=== PATIENT | female | born 1955 | race Caucasian/White ===

== ENCOUNTER 2022-07-03 01:22 | Day surgery (SDC) | payer MEDICARE, MEDICAID, SELFPAY ==
[2022-06-13 09:34] VITALS: BMI 22.1
[2022-07-03 09:06] VITALS: BP 157/83; PULSE 102; RESP 16; TEMP 36.4; O2SAT 100
[2022-07-03] MEDS: LACTATED RINGERS 1,000 ML 150 ML IV CONT (09:09)
--- NOTE | 2022-07-03 09:52 | P.PNAN_ITS ---
Anes - Initial Pre Proc Eval Procedure: Operation Date: 07/03/22 10:15 Proposed Procedures p Colonoscopy - Abdifatah Marrero MD Date/Time: 07/03/22 09:52 Surgeon: Abdifatah Marrero MD Pre Op Diagnosis: positive cologuard Patient Data Age: 67 Gender: F Height: 1.7 m Weight: 67 kg Last Vital Signs Temp 97.5 F L 07/03/22 09:06 Pulse 102 H 07/03/22 09:06 Resp 16 07/03/22 09:06 BP 157/83 H 07/03/22 09:06 Pulse Ox 100 07/03/22 09:06 O2 Del Method Room Air 07/03/22 09:06 Allergies Allergy/AdvReac Type Severity Reaction Status Date / Time No Known Allergies Allergy Verified 07/03/22 09:02 Home Medications Medication Instructions Recorded Confirmed Type ascorbic acid (vitamin C) 500 mg 500 mg PO DAILY 09/29/19 07/03/22 History capsule diphenhydramine HCl 25 mg capsule 25 mg PO HS 09/29/19 07/03/22 History (Benadryl) magnesium 250 mg tablet 250 mg PO DAILY 09/29/19 07/03/22 History melatonin 300 mcg tablet 300 mcg PO HS 09/29/19 07/03/22 History estradiol 0.01% (0.1 mg/gram) 0.5 g vaginal 2XW 06/13/22 07/03/22 History vaginal cream (Estrace) multivitamin [id number] 1 tablet PO DAILY 06/13/22 07/03/22 History fumarate 18 mg-vitamin K 25 mcg tablet acetaminophen 300 mg-codeine 30 mg 1 tablet PO Q8H PRN Pain 07/03/22 07/03/22 History tablet Patient hx anesthesia problems: none Family hx anesthesia problems: none Results Review: All pre-operative results and documents have been reviewed as part of the pre- operative evaluation. FORMERLY [facility], 1928–1983 Past Medical History Medical History (Updated 05/15/22 @ 13:09 by Lamar Cat MA) Anxiety Back pain H/O vaginal delivery HPV test positive Insomnia Joint pain Parotid adenoma Surgical History Surgical History H/O colposcopy with cervical biopsy History of dilation and curettage Family History Family History Mother Family history of lymphoma Social History Social History (Updated 05/15/22 @ 13:10 by Lamar Cat MA) Years smoked: 40 Smoking status: Current every day smoker Tobacco type: cigarettes Second hand tobacco smoke exposure: No Alcohol intake: current Drinks per week: 2 Substance use: never Substance use type: does not use Living arrangements: alone Anes - Eval Final PreProcedure Day of Procedure 07/03/22 09:52 Patient weight: normal Heart: regular rate and rhythm Lungs: clear to auscultation Airway: Mallampati scale class II Neurological: alert and oriented Last oral intake: >/= 8 hours ASA classification: II Emergent: no Anesthetic plan: proceed Anesthesia type and monitoring: general GIVS and standard monitoring Results Review: All pre-operative results and documents have been reviewed as part of the pre- operative evaluation. Informed Consent: The patient's anesthetic plan and its attendant risks and benefits were di scussed with the patient/family/POA. Questions were solicited and answers provided to the satisfaction of the patient/family/POA.
--- NOTE | 2022-07-03 10:25 | PM.HPGS ---
History of Present Illness History of Present Illness Consent: Risks, benefits, and alternatives have been discussed and questions answered. Patient agrees to proceed with procedure. Chief complaint: positive cologuard Narrative: Dafne Hansen is a 67 year old female Presents for colonoscopy. Patient had recent Cologuard test that was positive. Patient reports that her weight appetite bowel movements are normal. Patient denies abdominal pain. She has had no bleeding. Family history is noncontributory. Review of Systems Review of Systems: Review of systems noncontributory. [facility] Past Medical History Medical History (Updated 07/03/22 @ 10:26 by Abdifatah Marrero MD) Anxiety Back pain H/O vaginal delivery HPV test positive Insomnia Joint pain Parotid adenoma Surgical History Surgical History H/O colposcopy with cervical biopsy History of dilation and curettage Family History Family History Mother Family history of lymphoma Social History Social History (Updated 05/15/22 @ 13:10 by Lamar Cat MA) Years smoked: 40 Smoking status: Current every day smoker Tobacco type: cigarettes Second hand tobacco smoke exposure: No Alcohol intake: current Drinks per week: 2 Substance use: never Substance use type: does not use Living arrangements: alone Meds Home Medications and Allergies Home Medications Medication Instructions Recorded Confirmed Type ascorbic acid (vitamin C) 500 mg 500 mg PO DAILY 09/29/19 07/03/22 History capsule diphenhydramine HCl 25 mg capsule 25 mg PO HS 09/29/19 07/03/22 History (Benadryl) magnesium 250 mg tablet 250 mg PO DAILY 09/29/19 07/03/22 History melatonin 300 mcg tablet 300 mcg PO HS 09/29/19 07/03/22 History estradiol 0.01% (0.1 mg/gram) 0.5 g vaginal 2XW 06/13/22 07/03/22 History vaginal cream (Estrace) multivitamin [id number] 1 tablet PO DAILY 06/13/22 07/03/22 History fumarate 18 mg-vitamin K 25 mcg tablet acetaminophen 300 mg-codeine 30 mg 1 tablet PO Q8H PRN Pain 07/03/22 07/03/22 History tablet Allergies Allergy/AdvReac Type Severity Reaction Status Date / Time No Known Allergies Allergy Verified 07/03/22 09:02 Vital Signs Vital Signs - 24 hr 07/03/22 09:06 Temperature 97.5 F L Pulse Rate 102 H Respiratory Rate 16 Blood Pressure 157/83 H Pulse Oximetry 100 Oxygen Delivery Room Air Exam Narrative: Physical exam reveals patient to be alert. Vital signs stable. HEENT exam is unremarkable. Patient is anicteric. Lungs are clear to auscultation and percussion. Heart is without murmur or extra sounds. Abdomen bowel sounds are present soft nontender with no organomegaly. Digital external rectal exam is normal. Assessment and Plan Assessment and plan (1) Positive colorectal cancer screening using Cologuard test: Code(s): R19.5 - Other fecal abnormalities Status: Acute Assessment and Plan: Patient's Cologuard test was positive. Plan for colonoscopy to evaluate more thoroughly further recommendations will be given after endoscopy.
[2022-07-03 11:22] VITALS: BP 125/79; PULSE 89; RESP 23; O2SAT 100
[2022-07-03 11:32] VITALS: BP 127/79; PULSE 74; RESP 20; O2SAT 100
[2022-07-03 11:42] VITALS: BP 145/74; PULSE 78; RESP 22; O2SAT 100
== END 2022-07-03 11:55 | disposition home or self-care (01) ==
PROVIDERS: PCP Family Medicine; Visit Provider Internal Medicine Gastroenterology
PROC: 0DJD8ZZ Inspection of Lower Intestinal Tract, Via Natural or Artificial Opening Endoscopic (ICD-10-PCS; CPT 45378; principal; 2022-07-03 10:15)
DX: R19.5 Other fecal abnormalities (principal); K62.1 Rectal polyp; F41.9 Anxiety disorder, unspecified; G47.00 Insomnia, unspecified; F17.210 Nicotine dependence, cigarettes, uncomplicated
CPT/HCPCS: 45385; 88305; A9270; J2001; J2704; J7120

== ENCOUNTER 2024-01-24 15:40 | Outpatient (CLI) | payer MEDICARE, MEDICAID, SELFPAY ==
--- NOTE | ~2024-01-24 | XR_ITS ---
EXAMINATION: XR chest 2V DATE: 01/24/2024 16:26 INDICATION: Sarcoidosis TECHNIQUE: PA and lateral views of the chest were obtained. COMPARISON: None FINDINGS: The lungs are clear with no focal airspace opacities, pulmonary edema, pleural effusion or pneumothor ax. The cardiomediastinal silhouette is normal. Mild thoracic spondylosis with mild anterior wedging of a couple mid thoracic vertebral bodies. IMPRESSION: 1. No acute cardiopulmonary disease. Reviewed, dictated and finalized at location A.
== END 2024-01-24 15:41 ==
DX: D86.9 Sarcoidosis, unspecified (principal); Z87.891 Personal history of nicotine dependence
CPT/HCPCS: 71046

== ENCOUNTER 2024-01-28 11:32 | Outpatient (CLI) | payer MEDICARE, MEDICAID, SELFPAY ==
[2024-01-28 13:20] LABS: Alanine Aminotransferase 23 U/L (6-35); Albumin Level 4.9 g/dL (3.5-5.1); Alkaline Phosphatase 48 U/L (38-126); Anion Gap 11 mmol/L (4-12); Aspartate Amino Transferase 29 U/L (14-36); Bilirubin,Total 0.5 mg/dL (0.2-1.3); Blood Urea Nitrogen 15 mg/dL (7-17); CRP < 0.5 mg/dL (<1.0); Calcium 10.2 mg/dL (8.4-10.2); Carbon Dioxide 25 mmol/L (22-30); Chloride 105 mmol/L (98-107); Estimated Glomerular Filt Rate > 60; Glucose 99 mg/dL (65-110); Potassium 4.5 mmol/L (3.4-5.0); Sodium 141 mmol/L (137-145)
[2024-01-28 13:46] LABS: Erythrocyte Sedimentation Rate 53 mm/hr (0-20)
[2024-01-28 13:49] LABS: Basophils Absolute Auto 0.1 K/mm3 (0.0-0.1); Basophils Percent Auto 0.8 % (0.2-1.2); Eosinophils Absolute Auto 0.1 K/mm3 (0-0.3); Eosinophils Percent Auto 0.6 % (0-4.4); Hematocrit 35.9 % (37.0-47.0); Immature Granulocyte Absolute 0.07 K/mm3 (0.00-0.031); Immature Granulocyte Percent A 0.7 % (0-0.5); Lymphocytes Absolute Auto 2.31 K/mm3 (0.9-3.2); Lymphocytes Percent Auto 24.5 % (18.3-44.2); Mean Corpuscular HGB Conc 33.4 g/dl (32-36); Mean Corpuscular Hemoglobin 33.8 pg (26-34); Mean Corpuscular Volume 101.1 fl (80-100); Mean Platelet Volume 9.4 fl (7.4-10.4); Monocytes Absolute Auto 0.6 K/mm3 (0.1-0.6); Monocytes Percent Auto 6.4 % (2.6-8.5); Neutrophils Absolute Auto 6.3 K/mm3 (1.3-6.7); Platelet Count Result 402 k/mm3 (150-375); Red Blood Count 3.55 M/mm3 (4.2-5.4); Red Cell Distribution Width 11.4 % (11.5-14.5); White Blood Count 9.4 K/mm3 (4.5-10.0)
[2024-01-28 15:07] LABS: Rapid Plasma Reagin Non-Reactive (NonReactive)
[2024-01-29 23:59] LABS: HLA B27 NEGATIVE (NEGATIVE)
[2024-01-30 12:18] LABS: Angiotensin Converting Enzyme 31 U/L (9-67)
[2024-01-30 13:18] LABS: Toxoplasma IgG Antibody <7.20 IU/mL
[2024-01-30 13:18] LABS: Toxoplasma IgM Antibody <8.00 AU/mL
[2024-02-04 21:03] LABS: Bartonella henselae IgG NEGATIVE; Bartonella henselae IgM NEGATIVE; Bartonella quintana IgG NEGATIVE; Bartonella quintana IgM NEGATIVE
[2024-02-12 08:23] LABS: Reference Lab Test Name Lysozyme
[2024-02-12 08:24] LABS: Reference Lab Test Result 8.2
[2024-02-15 00:24] LABS: Treponema pallidum Ab FTA ABS NON-REACTIVE
== END 2024-01-28 11:33 | disposition home or self-care (01) ==
DX: Z11.3 Encounter for screening for infections with a predominantly sexual mode of transmission (principal); H44.112 Panuveitis, left eye
CPT/HCPCS: 36415; 80053; 82164; 85025; 85652; 86140; 86592; 86611; 86777; 86780; 86812

== ENCOUNTER 2025-08-03 14:58 | Outpatient (CLI) | payer MEDICARE, SELFPAY ==
--- NOTE | ~2025-08-03 | DEXA_ITS ---
Bone Density Report Name: ALXEIS DELEON Age: 70 Sex: Female Ethnicity: White Date of : 1955 Indication: postmenopausal; screening for osteoporosis; height loss; Referring Provider: WILLI MENJIVAR Study: Bone densitometry was performed. Exam Date: August 03, 2025 Accession number: [id number] Bone Density: Region BMD T-score Z-score Classification AP Spine(L2, L3, L4) 1.096 0.2 2.4 Normal Femoral Neck (Left) 0.797 -0.5 1.3 Normal Total Hip (Left) 0.953 0.1 1.6 Normal Femoral Neck (Right) 0.867 0.2 2.0 Normal Total Hip (Right) 0.958 0.1 1.7 Normal Total Hip Mean 0.956 0.1 1.7 Normal World Health Organization criteria for BMD impression classify patients as: Normal (T-score at or above -1.0), Osteopenia (T-score between -1.0 and -2.5), or Osteoporosis (T-score at or below -2.5). 10-year Fracture Risk: FRAX not reported because: All T-scores for Spine Total, Hip Total, Femoral Neck at or above -1.0 Previous Exams: -- Region Exam Age BMD T-score BMD Change BMD Change Date g/cm2 vs Baseline vs Previous -- AP Spine (L2-L4) 08/03/2025 70 1.096 0.2 0.6% 0.6% 09/04/2019 64 1.090 0.1 Total Hip(Left) 08/03/2025 70 0.953 0.1 -3.1%* -3.1%* 09/04/2019 64 0.983 0.3 Total Hip(Right) 08/03/2025 70 0.958 0.1 -1.5% -1.5% 09/04/2019 64 0.973 0.3 -- *Denotes significance at 95% confidence level, LSC for AP Spine = 0.022 g/cm2, LSC for Total Hip = 0.027 g/cm2 Clinical Information Provided by Patient: Patient maximum height was 68 Menopause Age: 51 Drinks caffeinated beverages Onset of menses at age 12 Number of children 1 Impression: The patient has normal bone mass. The BMD for the Total Hip(Left) decreased, changing by -3.1% since the last DXA exam. Discussion: BONE DENSITY IS ABOVE THE MINIMUM DESIRABLE LEVEL AT ALL SKELETAL SITES TESTED. This patient?s bone mineral density is above the minimum desirable level (T-score -1.0 or better) at all sites measured. The patient should follow a healthful lifestyle (good nutrition with adequate calcium and vitamin D, and appropriate weight-bearing exercise). Follow-Up: Consider repeating this study in 3 to 4 years to reassess this patient's status, or sooner if there is some new clinical indication. Reported by: DEZ on 08/03/2025 3:18:00 PM. Reviewed, dictated and finalized at location A.
== END 2025-08-03 14:59 | disposition home or self-care (01) ==
PROVIDERS: PCP Nurse Practitioner Family; Visit Provider Nurse Practitioner Family
DX: Z13.820 Encounter for screening for osteoporosis (principal); Z78.0 Asymptomatic menopausal state
CPT/HCPCS: 77080